=== PATIENT | male | born 1955 | race Caucasian/White ===

== ENCOUNTER 2019-08-27 15:10 | Outpatient (CLI) | payer OTHER ==
[~2019-08-27 15:10] MED LIST: MULT-1085 PO
== END 2019-08-27 23:59 | disposition home or self-care (01) ==
LOC: RAD 15:10
PROVIDERS: ATTEND Student in an Organized Health Care Education/Training Program
DX: C02.9 Malignant neoplasm of tongue, unspecified (principal); R13.12 Dysphagia, oropharyngeal phase; Z85.89 Personal history of malignant neoplasm of other organs and systems; Z85.21 Personal history of malignant neoplasm of larynx
CPT/HCPCS: 74230